=== PATIENT | male | born 1955 | race Caucasian/White ===

== ENCOUNTER 2017-05-16 20:18 | Inpatient (IN) ==
--- NOTE | 2017-05-16 23:03 | Internal Med History&Physical ---
Date of Encounter: 05/16/17 Time of Encounter: 22:59 Assessment and Plan (1) Hyperlipidemia Status: Chronic chol 237 ldl 139 start lipitor 40 mgdaily Qualifiers: Hyperlipidemia type: pure hypercholesterolemia Qualified Code(s): E78.00 - Pure hypercholesterolemia, unspecified; E78.0 - Pure hypercholesterolemia (2) ETOH abuse Status: Acute Patient at risk of becoming an alcoholic . he is very functional and goes to the gym And at this point he says he only drinks about 4 or 5 beers a day we will observe for alcohol withdrawal syndrome (3) Hyponatremia Status: Acute Severe hyponatremia most likely due to beer potomania will consult nephrology (4) Hypertension Status: Chronic Patient was on lisinopril 10 mg in the past we will resume lisinopril at this point Qualifiers: Hypertension type: essential hypertension Qualified Code(s): I10 - Essential (primary) hypertension Internal Medicine - H&P: HPI Chief complaint: htn Admitted From: Home Plans for Post Hospital Care: Home History of present illness: Mr. Deshpande is a 61 year old male Patient with history of hypertension but stopped taking it about 3 years ago because BP was control, also obesity. Patient goes to the gym and exercises and take his blood pressure regularly but recently has been about 160 systolic he felt flushed with mild headache that he went to [facility] emergency room was about 160 systolic in emergency room. on evaluation found abnormal electrolytes sodium was 120 therefore he was transferred here for further evaluation and treatment potassium was 3.5 no seizure no other symptoms. No visual disturbances patient drinks alcohol about 4 or 5 beers a day and the shots of alcohol at night. He does not think he has withdrawal issues last blood pressure here on arrival is 158 systolic. Past Med Surg Social Fam HX - Past Medical History Medical history: hypertension Psychiatric history: no psych history - Social History Smoking Status: Never smoker Smokeless Tobacco Status: No Alcohol use: none Drug use: none Internal Medicine - H&P: Meds No Known Home Drugs 05/16/17 [History] 3 Allergy/AdvReac Type Severity Reaction Status Date / Time No Known Allergies Allergy Verified 05/16/17 17:09 All Systems PM: A 10-system review of systems was performed and is negative for pertinent findings except as documented above in the HPI. - Constitutional Constitutional: no chills, no fever(s), no night sweats - EENT Eyes: no change in vision, no discharge, no pain, no photophobia Ears: no ear discharge, no ear pain, no tinnitus Nose, mouth and throat: no dysphagia, no nasal discharge, no neck pain, no sore throat - Cardiovascular Cardiovascular ROS IM: no chest pain, no diaphoresis, no dyspnea, no lightheadedness, no palpitations, no syncope - Respiratory Respiratory: no cough, no dyspnea, no wheezing, no excessive phlegm production - Gastrointestinal Gastrointestinal: no abdominal pain, no diarrhea, no hematemesis, no hematochezia, no melena, no nausea, no vomiting - Musculoskeletal Musculoskeletal ROS IM: no numbness, no tingling - Integumentary Integumentary IM: no rash, no unusual bruising - Neurological Neurological ROS: headache(s) - Head Head exam: Present: atraumatic, normocephalic - Eye Eye exam: Present: PERRL, conjuntiva pink, sclera anicteric Pupils: Present: PERRL - Neck Neck exam general surgery: Present: supple, trachea midline. Absent: lymphadenopathy - Respiratory Respiratory exam: Present: CTAB. Absent: accessory muscle use, rales, rhonchi, wheezes - Cardiovascular Cardiovascular exam: Present: RRR, +S1, +S2. Absent: diastolic murmur, gallop, rubs, systolic murmur - GI/Abdominal GI/Abdominal exam: Present: normal bowel sounds, soft, no peritoneal signs. Absent: distended, tenderness - Extremities Exam Extremities exam: Present: warm, radial pulses palpable and symmetrical. Absent : calf tenderness, cyanotic, pedal edema - Neurological Exam Neurological exam: Present: CN II-XII intact, oriented X3, no focal deficits. Absent: pronater drift, facial droop, speech deficit - Skin Skin exam: Present: dry, intact
[2017-05-16] MEDS ORDERED: Naloxone 0.4 MG/ML INJ IVP PRN (23:11)
[2017-05-16] MEDS ORDERED: Acetaminophen 325 MG TABLET PO PRN (23:11)
[2017-05-16] MEDS ORDERED: *HR* LORazepam 2 MG/ML VIAL IVP PRN (23:15)
[2017-05-16] MEDS ORDERED: 0.9 % Sodium Chloride 1,000 ML IVC SCH (23:15)
[2017-05-17 05:40] LABS: Hematocrit 40.9 % (37.5-50.1); Hemoglobin 14.7 g/dL (12.9-16.9); Mean Corpuscular HGB Conc 35.9 g/dL (31.6-35.5); Mean Corpuscular Hemoglobin 34.5 pg (28.0-33.3); Mean Platelet Volume 9.4 fL (9.4-12.4); Platelet Count 145 K/mcL (140-400); Red Blood Count 4.26 M/mcL (4.19-5.50); Red Cell Distribution Width 11.9 % (11.5-14.5)
[2017-05-17 06:02] LABS: Alanine Aminotransferase 23 Units/L (7-52); Albumin 4.4 g/dL (3.5-5.7); Alkaline Phosphatase 46 Units/L (34-104); Aspartate Amino Transferase 22 Units/L (13-39); BUN/Creatinine Ratio 9 (6-26); Bilirubin,Total 1.6 mg/dL (0.3-1.0); Blood Urea Nitrogen 7 mg/dL (8-23); Calcium 9.2 mg/dL (8.6-10.3); Carbon Dioxide 27 mEq/L (23-29); Chloride 93 mEq/L (98-107); Globulin 2.2 g/dL (2.4-3.5); Glucose 96 mg/dL (70-105); Osmolality,Calculated 266 (280-300); Potassium 3.5 mEq/L (3.5-5.1); Sodium 129 mEq/L (136-145); Total Protein 6.6 g/dL (6.4-8.9); eGFR For African Americans > 60 (> 60); eGFR For Non-African Americans > 60 (> 60)
[2017-05-17] MEDS: *HR* Enoxaparin 40 MG/0.4 ML SYRINGE SQ SCH (06:10)
--- NOTE | 2017-05-17 07:33 | Internal Med Progress Note ---
<Michoacano Martins - Last Filed: 05/17/17 12:58> Date of Encounter: 05/17/17 Time of Encounter: 07:31 - Assessment and plan (1) ETOH abuse Current Visit: Yes Status: Acute Assessment and plan: Patient admits to drinking approximately 4-5 beers per day with shots of alcohol per night. -High risk for becoming alcoholic; observe for alcohol withdrawal; observe for alcohol withdrawal Plan: -[facility] protocol -Ativan 2 mg IV every 4 when necessary -Thiamine 100 mg by mouth daily -Vitamin B complex -Folic acid 1 mg by mouth daily (2) Hypertension Current Visit: No Status: Acute Assessment and plan: Patient has a known history of hypertension; was previously treated with lisinopril. -Patient stopped taking medication. -Presented to [facility] with an elevated blood pressure 203/117. Plan: -Lisinopril 10 mg by mouth daily Qualifiers: Hypertension type: unspecified Qualified Code(s): I10 - Essential (primary ) hypertension (3) Hyponatremia Current Visit: No Status: Acute Assessment and plan: -Severe hyponatremia most likely due to beer potomania -Laboratory analysis demonstrates a sodium level of 129 -Nephrology consult; Dr. Quintanilla has been consulted -IV NS stopped today to avoid correcting the sodium too rapidly (4) Hyperlipidemia Current Visit: Yes Status: Chronic Assessment and plan: -Lipitor 40 mg by mouth daily Qualifiers: Hyperlipidemia type: pure hypercholesterolemia Qualified Code(s): E78.00 - Pure hypercholesterolemia, unspecified; E78.0 - Pure hypercholesterolemia - Subjective Interval history: Patient is a 61-year-old gentleman who presented to the emergency room and [facility] with the chief complaint of elevated blood pressure. Checks his blood pressure frequently; systolic blood pressure is typically in the 130s. When he checked it before arrival, it was in the 160s. Had previously taken lisinopril; stopped taking it due to an improvement in his blood pressure. Patient also admits to heavy alcohol consumption; drinks beers daily with shots of alcohol at night. Upon arrival, patients blood pressure was elevated at 203 /117. Laboratory analysis demonstrated hyponatremia at 120. Patient was given both clonidine and Ativan. Blood pressure improved. Was transferred to [facility] for further observation for alcohol withdrawal. Patient was seen and examined at bedside this morning. Patient reports that he is feeling better today. He denies fever, chills, anxiety, nausea, vomiting, or lightheadedness. He has no complaints this morning. - Constitutional Vitals: Temp Pulse Resp BP Pulse Ox 97.4 F L 74 18 144/88 95 05/17/17 04:08 05/17/17 04:08 05/17/17 04:08 05/17/17 04:08 05/17/17 04:08 General appearance: Present: A&O X 3, answers questions appropriately - Head Head exam: Present: atraumatic, normocephalic - Eye Eye exam: Present: PERRL, conjuntiva pink, sclera anicteric Pupils: Present: PERRL - Neck Neck exam general surgery: Present: supple, trachea midline. Absent: lymphadenopathy - Respiratory Respiratory exam: Present: CTAB. Absent: accessory muscle use, rales, rhonchi, wheezes - Cardiovascular Cardiovascular exam: Present: RRR, +S1, +S2. Absent: diastolic murmur, gallop, rubs, systolic murmur - GI/Abdominal GI/Abdominal exam: Present: normal bowel sounds, soft, no peritoneal signs. Absent: distended, tenderness - Extremities Exam Extremities exam: Present: warm, radial pulses palpable and symmetrical. Absent : calf tenderness, cyanotic, pedal edema - Neurological Exam Neurological exam: Present: CN II-XII intact, oriented X3, no focal deficits. Absent: pronater drift, facial droop, speech deficit - Skin Skin exam: Present: dry, intact Internal Medicine: Result - Labs CBC & Chem 7: 05/17/17 04:40 05/17/17 04:40 Labs: Short CBC 05/17/17 05/17/17 Range/Units 04:40 04:40 WBC 4.3 (4.3-11.1) K/mcL RBC 4.26 (4.19-5.50) M/mcL Hgb 14.7 (12.9-16.9) g/dL Hct 40.9 (37.5-50.1) % MCV 96.0 (83.0-100.0) fL MCH 34.5 H (28.0-33.3) pg MCHC 35.9 H (31.6-35.5) g/dL RDW 11.9 (11.5-14.5) % Plt Count 145 (140-400) K/mcL MPV 9.4 (9.4-12.4) fL Sodium 129 L D (136-145) mEq/L Potassium 3.5 (3.5-5.1) mEq/L Chloride 93 L (98-107) mEq/L Carbon Dioxide 27 (23-29) mEq/L BUN 7 L (8-23) mg/dL Creatinine 0.79 (0.70-1.30) mg/dL Est GFR ( Amer) > 60 (> 60) Est GFR (Non-Af Amer) > 60 (> 60) BUN/Creatinine Ratio 9 (6-26) Glucose 96 (70-105) mg/dL Calculated Osmolality 266 L (280-300) Calcium 9.2 (8.6-10.3) mg/dL Total Bilirubin 1.6 H (0.3-1.0) mg/dL AST 22 (13-39) Units/L ALT 23 (7-52) Units/L Alkaline Phosphatase 46 (34-104) Units/L Serum Total Protein 6.6 (6.4-8.9) g/dL Albumin 4.4 (3.5-5.7) g/dL Globulin 2.2 L (2.4-3.5) g/dL Albumin/Globulin Ratio 2.0 (1.1-2.2) BMP 05/17/17 04:40 Sodium 129 L D Potassium 3.5 Chloride 93 L Carbon Dioxide 27 BUN 7 L Creatinine 0.79 Glucose 96 Calcium 9.2 Liver Function 05/17/17 Range/Units 04:40 Total Bilirubin 1.6 H (0.3-1.0) mg/dL AST 22 (13-39) Units/L ALT 23 (7-52) Units/L Alkaline Phosphatase 46 (34-104) Units/L Albumin 4.4 (3.5-5.7) g/dL Consult Discharge Plan - Plan Referrals: Arleen Moyer, PAULINO [Primary Care Provider] - <Ty Thomas - Last Filed: 05/17/17 14:00> Date of Encounter: 05/17/17 - Constitutional Vitals: Temp Pulse Resp BP Pulse Ox 98.3 F 73 20 170/84 96 05/17/17 11:12 05/17/17 11:12 05/17/17 11:12 05/17/17 11:12 05/17/17 11:12 Internal Medicine: Result - Labs CBC & Chem 7: 05/17/17 04:40 05/17/17 04:40 Labs: Short CBC 05/17/17 Range/Units 04:40 WBC 4.3 (4.3-11.1) K/mcL Hgb 14.7 (12.9-16.9) g/dL Hct 40.9 (37.5-50.1) % Plt Count 145 (140-400) K/mcL BMP 05/17/17 04:40 Sodium 129 L D Potassium 3.5 Chloride 93 L Carbon Dioxide 27 BUN 7 L Creatinine 0.79 Glucose 96 Calcium 9.2 Liver Function 05/17/17 Range/Units 04:40 Total Bilirubin 1.6 H (0.3-1.0) mg/dL AST 22 (13-39) Units/L ALT 23 (7-52) Units/L Alkaline Phosphatase 46 (34-104) Units/L Albumin 4.4 (3.5-5.7) g/dL - Attending Attestation I examined this patient and my medical decision-making was reviewed with the Resident Physician. I agree with the documented findings, disposition and treatment plan as described except to the extent set forth below. Seen and examined at bedside, no alcohol abuse was admitted for uncontrolled hypertension and hyponatremia. Patient is ambulatory, conversant in the form of distress and has no new complaints. Blood pressure remains uncontrolled on home dose of lisinopril 10 mg daily. Physical exam is unremarkable. Labs and imaging reviewed sodium 129, was 120 on admission. I am going to discontinue the normal saline and also in sodium every 6, add amlodipine to present regimen of antihypertensives. Educated on the cessation of alcohol abuse. [facility] protocol Rest as in the resident physician's documentation
[2017-05-17] MEDS: Vitamin B Complex/Vit C/Vit E 1 EACH TABLET PO SCH (08:43)
[2017-05-17] MEDS: Thiamine (B-1) 100 MG TABLET PO SCH (08:43)
[2017-05-17] MEDS: Folic Acid 1 MG TABLET PO SCH (08:43)
[2017-05-17] MEDS ORDERED: *HR* LORazepam 2 MG/ML VIAL IVP PRN ×3 (09:05)
--- NOTE | 2017-05-17 14:54 | Nephrology Consult Note ---
Date of Encounter: 05/17/17 Time of Encounter: 15:00 Assessment and Plan (1) Hyponatremia Current Visit: No Status: Acute Given rapid sodium rise, agree no more IVF. Will check STAT sodium now and reassess whether to give D5W suspect hypovolemia from "sweating it out" in the sauna and repleting with just water Can liberalize sodium in diet for now Will check urine and serum osmolality along with uric acid, TSH and cortisol levels (2) Hypertension Current Visit: No Status: Acute Agree with resuming lisinopril which pt was previously taking along with amlodipine Qualifiers: Hypertension type: unspecified Qualified Code(s): I10 - Essential (primary ) hypertension History of Present Illness - Reason for Consult Consult date: 05/17/17 hyponatremia Requesting physician: Willis Duenas - History of Present Illness 61 y o male with PMH of EtOH use, HTN off antihypertensives for the past 2-3 years with diet and exercise and high chol on niacin admitted as a transfer from [place] where he presented with dizziness, headaches and overall malaise after going to the gym and also using the sauna. he was found with critically low sodium at 120 now 129 with IVF this am now discontinued. Renal consulted for management. Pt reports no prior history of hyponatremia. He reports eating poorly yesterday as well prior to feeling sick. He is isngle and live alone and apparently likes drinking beer most days in the evenings. No diuretic use. BP readings elevated from typical on presentation. No N/V/D. Pt seen and examined and feels back to his baseline. Past Med Surg Social Fam HX - Past Medical History Medical history: hyperlipidemia, hypertension Psychiatric history: no psych history - Past Surgical History Surgical History: appendectomy - Social History Smoking Status: Never smoker Smokeless Tobacco Status: No Alcohol use: heavy, recent Drug use: none - Family History Mother Living Status: Still Living Hx Family Cancer: Yes (Breast Cancer) Medications and Allergies Niacinamide [Niacin] 500 mg PO DAILY 05/16/17 [History] Cholecalciferol (D-3) [Vitamin D] 1,000 unit PO DAILY 05/17/17 [History] L.acidoph,Paracasei, B.lactis [Probiotic] 1 cap PO DAILY 05/17/17 [History] Lisinopril [Zestril] 10 mg PO DAILY 05/17/17 [History] Multivitamin [One Daily Multivitamin] 1 tab PO DAILY 05/17/17 [History] Ubidecarenone [Coq10] 50 mg PO DAILY 05/17/17 [History] 3 Allergy/AdvReac Type Severity Reaction Status Date / Time No Known Allergies Allergy Verified 05/17/17 09:06 Review of Systems All Systems: reviewed and no additional remarkable complaints except as stated ( 10 systems reviewed) Exam - Vital Signs Vital signs: Initial Vital Signs Temp Pulse Resp BP Pulse Ox 97.8 F 78 18 158/89 97 05/16/17 22:31 05/16/17 22:31 05/16/17 22:31 05/16/17 22:31 05/16/17 22:31 Vital Signs - Last 8 Hours Temp Pulse Resp BP Pulse Ox 05/17/17 11:12 98.3 F 73 20 170/84 96 05/17/17 08:21 98.5 F 80 20 98 Intake and Output 05/16/17 05/17/17 05/17/17 23:59 07:59 15:59 Intake Total 600 / 600 Balance 600 / 600 Intake: Oral 600 / 600 Other: Meal Lunch Percent of Meal Consumed 100% # Voids 1 Weight 94.517 kg Patient Weight 05/17/17 23:59 Weight 94.517 kg - General Appearance General appearance: well-developed, well-nourished EENT: ATNC, mucous membranes moist Neck: no JVD Cardiology: no edema, normal S1, normal S2 Gastrointestinal: no tenderness, no guarding Integumentary: warm and dry Neurologic: no focal deficit Musculoskeletal: no deformities Psychiatric: mood/affect appropriate, cooperative Results - Lab Results 05/17/17 04:40 05/17/17 21:21 Most recent lab results Calcium 9.2 mg/dL (8.6-10.3) 05/17/17 04:40 Consult Discharge Plan - Plan Referrals: Arleen Moyer CNP [Primary Care Provider] -
[2017-05-17 17:09] LABS: Bilirubin,Urine Negative (Negative); Blood,Urine Negative (Negative); Clarity,Urine Clear (Clear); Color,Urine Yellow (Yellow); Glucose,Urine (UA) Normal (Normal); Ketones,Urine Trace mg/dL (Negative); Leukocyte Esterase,Urine Negative (Negative); Nitrite,Urine Negative (Negative); PH,Urine 6.5 pH Units (5.0-8.0); Protein,Urine Negative (Neg-Trace); Specific Gravity,Urine 1.012 (1.010-1.025); Urobilinogen,Urine Normal (Normal)
[2017-05-17 21:58] LABS: BUN/Creatinine Ratio 14 (6-26); Blood Urea Nitrogen 13 mg/dL (8-23); Calcium 9.4 mg/dL (8.6-10.3); Carbon Dioxide 27 mEq/L (23-29); Chloride 100 mEq/L (98-107); Glucose 114 mg/dL (70-105); Osmolality,Calculated 279 (280-300); Potassium 4.1 mEq/L (3.5-5.1); Sodium 134 mEq/L (136-145); eGFR For African Americans > 60 (> 60); eGFR For Non-African Americans > 60 (> 60)
[2017-05-17] MEDS ORDERED: *HR* LORazepam 2 MG/ML VIAL IVP ONE (22:06)
[2017-05-18 03:44] LABS: Basophils % 0.6 %; Eosinophils # 0.1 K/mcL (0.0-0.6); Eosinophils % 1.6 %; Hematocrit 42.4 % (37.5-50.1); Immature Granulocytes % 0.8 % (0-4); Immature Platelets 4.6 % (1.1-6.1); Lymphocytes # 1.3 K/mcL (0.6-4.6); Lymphocytes % 24.7 %; Mean Corpuscular HGB Conc 35.4 g/dL (31.6-35.5); Mean Corpuscular Hemoglobin 34.7 pg (28.0-33.3); Mean Corpuscular Volume 98.1 fL (83.0-100.0); Mean Platelet Volume 9.5 fL (9.4-12.4); Monocytes # 0.7 K/mcL (0.0-1.3); Monocytes % 13.7 %; Nucleated Red Blood Cells 0.4 /100 WBC (0); Platelet Count 153 K/mcL (140-400); Red Blood Count 4.32 M/mcL (4.19-5.50); Red Cell Distribution Width 11.9 % (11.5-14.5); Segmented Neutrophils % 58.6 %
[2017-05-18 03:52] LABS: BUN/Creatinine Ratio 11 (6-26); Blood Urea Nitrogen 10 mg/dL (8-23); Calcium 9.3 mg/dL (8.6-10.3); Carbon Dioxide 26 mEq/L (23-29); Chloride 101 mEq/L (98-107); Glucose 106 mg/dL (70-105); Osmolality,Calculated 279 (280-300); Potassium 3.8 mEq/L (3.5-5.1); Sodium 135 mEq/L (136-145); eGFR For African Americans > 60 (> 60); eGFR For Non-African Americans > 60 (> 60)
[2017-05-18 04:07] LABS: Thyroid Stimulating Hormone 2.056 mcIU/mL (0.340-5.600)
[2017-05-18] MEDS: *HR* Enoxaparin 40 MG/0.4 ML SYRINGE SQ SCH (05:12)
[2017-05-18] MEDS ORDERED: amLODIPine 5 MG TABLET PO SCH ×2 (08:00→09:00)
--- NOTE | 2017-05-18 08:01 | Event Note ---
Date of Encounter: 05/18/17 Time of Encounter: 08:00 [facility] has improved with the hyponatremia at a very safe 135. I reviewed the sign- out info from Dr. Quintanilla. Will sign-off at this point. Thank you for having consulted the [facility] group.
[2017-05-18] MEDS: Folic Acid 1 MG TABLET PO SCH (08:22)
[2017-05-18] MEDS: Vitamin B Complex/Vit C/Vit E 1 EACH TABLET PO SCH (08:22)
[2017-05-18] MEDS: Thiamine (B-1) 100 MG TABLET PO SCH (08:22)
--- NOTE | 2017-05-18 08:22 | Internal Med Progress Note ---
Date of Encounter: 05/18/17 Time of Encounter: 08:22 - Assessment and plan (1) ETOH abuse Current Visit: Yes Status: Acute Assessment and plan: Patient admits to drinking approximately 4-5 beers per day with shots of alcohol per night. -High risk for becoming alcoholic; observe for alcohol withdrawal; observe for alcohol withdrawal Plan: -[facility] protocol -Ativan 2 mg IV every 4 when necessary -Thiamine 100 mg by mouth daily -Vitamin B complex -Folic acid 1 mg by mouth daily (2) Hypertension Current Visit: No Status: Acute Assessment and plan: Patient has a known history of hypertension; was previously treated with lisinopril. -Patient stopped taking medication. -Presented to [facility] with an elevated blood pressure 203/117. Plan: -Lisinopril 10 mg by mouth daily Qualifiers: Hypertension type: unspecified Qualified Code(s): I10 - Essential (primary ) hypertension (3) Hyponatremia Current Visit: No Status: Acute Assessment and plan: Severe hyponatremia most likely due to beer potomania -Patient's sodium level was initially 120. -Was corrected to 129 after normal saline. -Normal saline was subsequently stopped to prevent correcting too rapidly -Nephrology was consulted. -Nephrology recommends liberalizing sodium in the diet for now -Check urine and serum osmolality along with uric acid, TSH, and cortisol levels (4) Hyperlipidemia Current Visit: Yes Status: Chronic Assessment and plan: -Lipitor 40 mg by mouth daily Qualifiers: Hyperlipidemia type: pure hypercholesterolemia Qualified Code(s): E78.00 - Pure hypercholesterolemia, unspecified; E78.0 - Pure hypercholesterolemia - Subjective Interval history: Patient was seen and examined at bedside this morning. Patient reports that he is feeling better today. He denies fever, chills, anxiety, nausea, vomiting, or lightheadedness. He has no complaints this morning. - Constitutional Vitals: Temp Pulse Resp BP Pulse Ox 97.5 F L 75 14 165/101 95 05/18/17 07:27 05/18/17 07:27 05/18/17 07:27 05/18/17 07:27 05/18/17 07:27 General appearance: Present: A&O X 3, answers questions appropriately - Head Head exam: Present: atraumatic, normocephalic - Eye Eye exam: Present: PERRL, conjuntiva pink, sclera anicteric Pupils: Present: PERRL - Neck Neck exam general surgery: Present: supple, trachea midline. Absent: lymphadenopathy - Respiratory Respiratory exam: Present: CTAB. Absent: accessory muscle use, rales, rhonchi, wheezes - Cardiovascular Cardiovascular exam: Present: RRR, +S1, +S2. Absent: diastolic murmur, gallop, rubs, systolic murmur - GI/Abdominal GI/Abdominal exam: Present: normal bowel sounds, soft, no peritoneal signs. Absent: distended, tenderness - Extremities Exam Extremities exam: Present: warm, radial pulses palpable and symmetrical. Absent : calf tenderness, cyanotic, pedal edema - Neurological Exam Neurological exam: Present: CN II-XII intact, oriented X3, no focal deficits. Absent: pronater drift, facial droop, speech deficit - Skin Skin exam: Present: dry, intact Internal Medicine: Result - Labs CBC & Chem 7: 05/18/17 02:51 05/18/17 02:51 Labs: Short CBC 05/18/17 Range/Units 02:51 WBC 5.1 (4.3-11.1) K/mcL Hgb 15.0 (12.9-16.9) g/dL Hct 42.4 (37.5-50.1) % Plt Count 153 (140-400) K/mcL Neutrophils # 3.0 (1.6-8.9) K/mcL BMP 05/17/17 05/17/17 05/18/17 15:45 21:21 02:51 Sodium 130 L 134 L 135 L Potassium 4.1 3.8 Chloride 100 101 Carbon Dioxide 27 26 BUN 13 10 Creatinine 0.93 0.93 Glucose 114 H 106 H Calcium 9.4 9.3 Urine 05/17/17 Range/Units 14:30 Urine Color Yellow (Yellow) Urine Clarity Clear (Clear) Urine pH 6.5 (5.0-8.0) pH Units Ur Specific [place] 1.012 (1.010-1.025) Urine Protein Negative (Neg-Trace) mg/dL Urine Glucose (UA) Normal (Normal) mg/dL Consult Discharge Plan - Plan Referrals: Arleen Moyer, [employer] [Primary Care Provider] -
--- NOTE | 2017-05-18 10:39 | Discharge Summary ---
<Michoacano Martins - Last Filed: 05/18/17 11:50> Orders not resulted at time of discharge: Pending orders 05/19/17 04:00 Basic Metabolic Panel AM 0400 Complete Blood Count [HEME] AM 0400 Date of Encounter: 05/18/17 Time of Encounter: 10:37 - Discharge Diagnosis (1) ETOH abuse Priority: Primary Status: Acute (2) Hypertension Priority: Secondary Status: Acute Qualifiers: Hypertension type: unspecified Qualified Code(s): I10 - Essential (primary ) hypertension (3) Hyponatremia Priority: Secondary Status: Acute (4) Hyperlipidemia Priority: Secondary Status: Chronic Qualifiers: Hyperlipidemia type: pure hypercholesterolemia Qualified Code(s): E78.00 - Pure hypercholesterolemia, unspecified; E78.0 - Pure hypercholesterolemia Hospital course: Mr. Deshpande is a 61 year old male who presented to the emergency room and [place] with the chief complaint of elevated blood pressure. Checks his blood pressure frequently; systolic blood pressure is typically in the 130s. When he checked it before arrival, it was in the 160s. Had previously taken lisinopril; stopped taking it due to an improvement in his blood pressure. Patient also admits to heavy alcohol consumption; drinks beers daily with shots of alcohol at night. Upon arrival, patients blood pressure was elevated at 203 /117. Laboratory analysis demonstrated hyponatremia at 120. Patient was given both clonidine and Ativan. Blood pressure improved. Was transferred to [facility] for further observation for alcohol withdrawal. He was started on CIWA protocol , Ativan 2 mg IV every 4 when necessary, Thiamine 100 mg by mouth daily, Vitamin B complex, and Folic acid 1 mg by mouth daily. Patient was started on Lisinopril and Norvasc for BP control. Due to his hyponatremia, patient was initially given NS. NS was stopped after sodium corrected by 9 points. Patient was seen and examined at bedside on the morning of discharge. Patient appears very anxious to go home. Required Ativan last night for anxiety. He denies fever, chills, anxiety, nausea, vomiting, or lightheadedness. He has no complaints at this time. He was instructed to start his new BP meds and to take them regularly. - Time Spent with Patient Total time spent providing and/or coordinating discharge services: Greater than 30 minutes (42 minutes) - Discharge Medications Prescriptions: amLODIPine [Norvasc] 10 mg PO DAILY #30 tablet Lisinopril [Zestril] 10 mg PO DAILY #30 tablet Home Medications: Niacinamide [Niacin] 500 mg PO DAILY 05/16/17 [History] Cholecalciferol (D-3) [Vitamin D] 1,000 unit PO DAILY 05/17/17 [History] L.acidoph,Paracasei, B.lactis [Probiotic] 1 cap PO DAILY 05/17/17 [History] Lisinopril [Zestril] 10 mg PO DAILY 05/17/17 [History] Multivitamin [One Daily Multivitamin] 1 tab PO DAILY 05/17/17 [History] Ubidecarenone [Coq10] 50 mg PO DAILY 05/17/17 [History] Lisinopril [Zestril] 10 mg PO DAILY #30 tablet 05/18/17 [Rx] amLODIPine [Norvasc] 10 mg PO DAILY #30 tablet 05/18/17 [Rx] Allergies/Adverse Reactions: 3 Allergy/AdvReac Type Severity Reaction Status Date / Time No Known Allergies Allergy Verified 05/17/17 09:06 Date of admission: 05/17/17 03:45 Primary care physician: Arleen Moyer CNP Consults: 05/16/17 23:12 Consult to Physician [CONS] Routine Consulting Provider: Spencer Moscoso Reason for Consult: severe hyponatremia na 120 Time Notified: 23:13 Call Completed: No 05/16/17 23:15 Consult to Boot Liner Maker [CONS] Routine Reason for SW Consult: etoh abuse Discharging clinician: Michoacano Martins Anticipated date of discharge: 05/18/17 - Constitutional Vitals: Temp Pulse Resp BP Pulse Ox 97.5 F L 75 14 165/101 95 05/18/17 07:27 05/18/17 07:27 05/18/17 07:27 05/18/17 07:27 05/18/17 07:27 General appearance: Present: A&O X 3, answers questions appropriately - Head Head exam: Present: atraumatic, normocephalic - Eye Eye exam: Present: PERRL, conjuntiva pink, sclera anicteric Pupils: Present: PERRL - Neck Neck exam general surgery: Present: supple, trachea midline. Absent: lymphadenopathy - Respiratory Respiratory exam: Present: CTAB. Absent: accessory muscle use, rales, rhonchi, wheezes - Cardiovascular Cardiovascular exam: Present: RRR, +S1, +S2. Absent: diastolic murmur, gallop, rubs, systolic murmur - Extremities Exam Extremities exam: Present: warm, radial pulses palpable and symmetrical. Absent : calf tenderness, cyanotic, pedal edema - Neurological Exam Neurological exam: Present: CN II-XII intact, oriented X3, no focal deficits. Absent: pronater drift, facial droop, speech deficit - Skin Skin exam: Present: dry, intact - Patient Status Disposition: Home, Self-Care Condition: Good Overall status at discharge: patient is progressing back to baseline - Discharge Instructions Follow Up With: Arleen Moyer CNP [Primary Care Provider] - 05/28/17 10:00 am - Diet and Activity Activity: increase activity as tolerated Diet: advance to your usual diet <Ty Thomas - Last Filed: 05/18/17 12:48> Orders not resulted at time of discharge: Pending orders 05/19/17 04:00 Basic Metabolic Panel AM 0400 Complete Blood Count [HEME] AM 0400 Date of Encounter: 05/18/17 Hospital course: Mr. Deshpande is a 61 year old male - Time Spent with Patient Total time spent providing and/or coordinating discharge services: Date of admission: 05/17/17 03:45 Primary care physician: Arleen Moyer CNP Consults: 05/16/17 23:12 Consult to Physician [CONS] Routine Consulting Provider: Spencer Moscoso Reason for Consult: severe hyponatremia na 120 Time Notified: 23:13 Call Completed: No 05/16/17 23:15 Consult to Boot Liner Maker [CONS] Routine Reason for SW Consult: etoh abuse - Constitutional Vitals: Temp Pulse Resp BP Pulse Ox 98.0 F 96 14 180/112 98 05/18/17 11:22 05/18/17 11:22 05/18/17 11:22 05/18/17 11:22 05/18/17 11:22 - Attending Attestation I examined this patient and my medical decision-making was reviewed with the Resident Physician. I agree with the documented findings, disposition and treatment plan as described except to the extent set forth below. Seen and examined at bedside, patient with history of alcohol abuse was admitted for uncontrolled hypertension and hyponatremia. Patient is ambulatory, conversant in no form of distress and has no new complaints. Blood pressure is better controlled on amlodipine 10mg and home dose of lisinopril 10 mg daily. Physical exam is unremarkable. Labs and imaging reviewed sodium improved to 135 Stable to discharge patient home on new regimen Alcohol cessation education provided, patient wishes to self quit Rest as in the resident physician's documentation
[2017-05-18 13:43] VITALS: BP 170/88
== END 2017-05-18 13:52 | disposition home or self-care (01) | DRG 897 ==
LOC: 2ANU → SUATTDRO 05-17 03:45
PROVIDERS: ADMIT Internal Medicine; ATTEND Internal Medicine